=== PATIENT | male | born 1935 ===

== ENCOUNTER 2017-11-04 23:47 | Emergency (ER) | payer MEDICARE ==
[2017-11-04 23:47] VITALS: BMI 21.7
[2017-11-05 00:43] LABS: BASO % 0.8 % (0.0-2.0); EOS # 0.1 K/uL (0.0-0.7); EOS % 2.4 % (0.0-4.0); HEMOGLOBIN 10.6 g/dL (12.0-18.0); LYMPH # 1.4 K/uL (1.0-4.3); LYMPH % 35.9 % (20.0-40.0); MEAN CORPUSCULAR HEMOGLOBIN 28.5 pg (27.0-31.0); MEAN CORPUSCULAR HGB CONC 32.8 g/dL (33.0-37.0); MEAN PLATELET VOLUME 8.3 fl (7.2-11.7); MONO # 0.8 K/uL (0.0-0.8); MONO % 19.9 % (0.0-10.0); NEUT # 1.6 K/uL (1.8-7.0); NRBC % 0.1 % (0.0-0.0); RBC 3.7 Mil/uL (4.40-5.90); RED CELL DISTRIBUTION WIDTH 18.1 % (11.5-14.5)
[2017-11-05 00:52] LABS: ACETAMINOPHEN < 10.0 ug/ml (10.0-30.0); BLOOD UREA NITROGEN 19 mg/dl (9-20); CALCIUM 9.1 mg/dL (8.4-10.2); GFR AFRICAN-AMERICAN > 60; GFR NON-AFRICAN AMERICAN 53; SALICYLATE < 1.0 mg/dl
--- NOTE | 2017-11-05 02:03 | ED PDOC ---
HPI: Psych/Substance Abuse Time Seen by Provider: 11/05/17 00:03 Chief Complaint (Nursing): Psychiatric Evaluation Chief Complaint (Provider): Psychiatric Evaluation History/Exam Limitations: clinical condition Additional Complaint(s): 82 y/o male with past medical history of depression, Alzheimers, CAD and hypertension is brought to the ED by EMS for psychiatric evaluation. Patient was transferred to [facility] yesterday and staff notes that he was aggressive and agitated when he was demanding omega 3. Patient was violent towards staff. EMS reports patient was calm enroute but on arrival to ED patient is agitated again. Denies any further medical complaints. Past Medical History Vital Signs: Last Vital Signs Temp 97.7 F 11/05/17 00:07 Pulse 54 L 11/05/17 00:07 Resp 14 11/05/17 00:07 BP 118/79 11/05/17 00:07 Pulse Ox 94 L 11/05/17 00:07 - Medical History PMH: Alzheimer's Disease, CAD, Dementia, Depression, HTN, Hypercholesterolemia, TIA Denies: HIV - Surgical History Surgical History: No Surg Hx - Family History Family History: States: Unknown Family Hx - Social History Current smoker - smoking cessation education provided: No Alcohol: None Drugs: Denies - Home Medications Home Medications: Ambulatory Orders Medication Instructions Recorded Acetaminophen [Tylenol 325mg tab] 650 mg PO Q6 PRN #0 tab 04/01/16 Atorvastatin [Lipitor] 40 mg PO HS #0 tab 04/01/16 Tamsulosin HCl [Flomax] 0.4 mg PO HS #0 cap.er.24h 04/01/16 Aspirin [Ecotrin] 81 mg PO DAILY 11/05/17 Citalopram Hydrobromide 10 mg PO DAILY 11/05/17 [Citalopram HBr] Clopidogrel [Plavix] 75 mg PO DAILY 11/05/17 Famotidine [Pepcid] 20 mg PO DAILY 11/05/17 Furosemide [Lasix] 40 mg PO DAILY 11/05/17 Gabapentin [Neurontin] 100 mg PO DAILY 11/05/17 Ibuprofen [Motrin Tab] 600 mg PO Q6 PRN 11/05/17 Lorazepam [Ativan] 1 mg PO Q6 PRN 11/05/17 [id number]-8-Twiz Ethyl Esters [OMEGA 3] 1,000 mg PO DAILY 11/05/17 amLODIPine [Norvasc] 10 mg PO DAILY 11/05/17 cloNIDine 0.3 mg/24 hr 0.3 mg TD QWK 11/05/17 [catapres-TTS3 0.3 mg/24 hr] - Allergies Allergies/Adverse Reactions: Allergies Allergy/AdvReac Type Severity Reaction Status Date / Time No Known Allergies Allergy Verified 11/05/17 00:07 Review of Systems ROS Statement: Except As Marked, All Systems Reviewed And Found Negative (As per HPI, otherwise negative) Psych: Positive for: Other (Patient is here for Psychiatric evaluation) Physical Exam - Reviewed Nursing Documentation Reviewed: Yes Vital Signs Reviewed: Yes - Physical Exam Appears: Positive for: Uncomfortable (Patient is agaitated, shouting and spitting at staff) Head Exam: Positive for: ATRAUMATIC, NORMAL INSPECTION, NORMOCEPHALIC Skin: Positive for: Normal Color, Warm, Dry Eye Exam: Positive for: EOMI, Normal appearance, PERRL ENT: Positive for: Normal ENT Inspection Neck: Positive for: Normal, Painless ROM, Supple Cardiovascular/Chest: Positive for: Regular Rate, Rhythm. Negative for: Murmur Respiratory: Positive for: Normal Breath Sounds. Negative for: Accessory Muscle Use, Respiratory Distress Gastrointestinal/Abdominal: Positive for: Normal Exam, Bowel Sounds, Soft Back: Positive for: Normal Inspection Extremity: Positive for: Normal ROM (Patient is moving extremities equally bilaterally). Negative for: Deformity Neurologic/Psych: Positive for: Alert. Negative for: Oriented - Laboratory Results Result Diagrams: 11/05/17 00:30 11/05/17 00:30 - ECG O2 Sat by Pulse Oximetry: 94 (RA) Pulse Ox Interpretation: Normal Medical Decision Making Medical Decision Making: Time: 01:19 Initial Impression: Alzheimer's, dementia, adjustment disorder Plan: EKG Drug screen Crisis evaluation Urinalysis 3AM Patient was seen and evaluated by crisis, cleared for discharge. Scribe Attestation: Documented by Negrito Smith acting as a scribe for Rafi Smart MD. Scribe Attestation: All medical record entries made by the Scribe were at my direction and personally dictated by me. I have reviewed the chart and agree that the record accurately reflects my personal performance of the history, physical exam, medical decision making, and the department course for this patient. I have also personally directed, reviewed, and agree with the discharge instructions and disposition. Disposition - Clinical Impression Clinical Impression: Dementia - Disposition Referrals: [facility] [Outside] Disposition: Routine/Home Disposition Time: 03:00 Condition: IMPROVED Instructions: Dementia (Including Alzheimer Disease) Forms: [employer] (Latvian)
[2017-11-05 02:14] VITALS: BP 108/65; PULSE 60; RESP 18; TEMP 97.6
--- NOTE | 2017-11-05 12:22 | CARD ---
APPROVED REPORT EKG Measurement Heart [id number] MA [id number] <Conclusion> Sinus bradycardia Otherwise normal ECG
[2017-11-05 19:39] VITALS: O2SAT 94
== END 2017-11-05 03:00 ==
LOC: H.ER 23:47
DX: F02.80 Dementia in other diseases classified elsewhere, unspecified severity, without behavioral disturbance, psychotic disturbance, mood disturbance, and anxiety (principal); E78.00 Pure hypercholesterolemia, unspecified; G30.9 Alzheimer's disease, unspecified; I10 Essential (primary) hypertension; Z86.73 Personal history of transient ischemic attack (TIA), and cerebral infarction without residual deficits; I25.10 Atherosclerotic heart disease of native coronary artery without angina pectoris
CPT/HCPCS: 80048; 85025; 93005; 99283; G0480

== ENCOUNTER 2018-11-10 17:07 | Emergency (ER) | payer MEDICARE, MEDICAID ==
[2018-11-10 17:17] VITALS: BMI 20.9
--- NOTE | 2018-11-10 18:21 | ED PDOC ---
HPI: Psych/Substance Abuse Chief Complaint (Provider): Psychiatric Evaluation History Per: Patient History/Exam Limitations: no limitations Onset/Duration Of Symptoms: Days Current Symptoms Are (Timing): Still Present Associated Symptoms: Suicidal Thoughts Additional Complaint(s): 83 year old male with a past medical history of hypertension, hyperlipidemia, and diabetes who was brought to the ED by EMS from [facility] for evaluation of suicidal ideation. From [facility]itentiary report, patient was complaining of suicidal ideation and he admits to this stating that he doesnt want to stay in a penitentiary anymore and would rather stay in this hospital instead. Further states that 2 days ago while attempting to get out of bed, he injured left hand and leg. Patient denies any head injury, chest pain, headache, abdominal pain, loss of consciousness, numbness, or tingling. Of note, patient has a history of suicidal ideation and aggressive behavior. PMD: none provided <Kyra Vanessa - Last Filed: 11/10/18 18:24> <Gray Jean - Last Filed: 11/10/18 20:19> Time Seen by Provider: 11/10/18 17:27 Chief Complaint (Nursing): Psychiatric Evaluation Past Medical History Reviewed: Historical Data, Nursing Documentation, Vital Signs Vital Signs: Last Vital Signs Temp 97.6 F 11/10/18 17:14 Pulse 73 11/10/18 17:14 Resp 16 11/10/18 17:14 BP 112/69 11/10/18 17:14 Pulse Ox 99 11/10/18 17:14 - Medical History PMH: Alzheimer's Disease, Benign Prostatic Hyperplasia, CAD, Dementia, Depression, HTN, Hypercholesterolemia, Hyperlipidemia, Peripheral Edema (+1 left ft), TIA Denies: Diabetes, Hepatitis, HIV, Chronic Kidney Disease, Seizures, Sexually Transmitted Disease - Surgical History Surgical History: No Surg Hx - Family History Family History: States: Unknown Family Hx - Social History Current smoker - smoking cessation education provided: No Alcohol: None Drugs: Denies <Kyra Vanessa - Last Filed: 11/10/18 18:24> Vital Signs: Last Vital Signs Temp 97.6 F 11/10/18 17:14 Pulse 73 11/10/18 17:14 Resp 16 11/10/18 17:14 BP 112/69 11/10/18 17:14 Pulse Ox 99 11/10/18 18:25 <Gray Jean - Last Filed: 11/10/18 20:19> - Home Medications Home Medications: Ambulatory Orders Medication Instructions Recorded Ammonium Lactate 12% [Lac-Hydrin 1 appl TOP BID 11/10/18 12% Lotion (225 g)] Aspirin [Aspirin Chewable] 81 mg PO DAILY 11/10/18 Furosemide [Lasix] 40 mg PO DAILY 11/10/18 Agluj-1-Pmpi Ethyl Esters 1 GM 1 gm PO DAILY 11/10/18 [Lovaza] Polyvinyl Alcohol [Liquitears] 1 drop EACHEYE BID 11/10/18 Valproic Acid Oral Soln [Depakene 5 ml PO Q8 11/10/18 Oral Soln] amLODIPine [Norvasc] 10 mg PO DAILY 11/10/18 levETIRAcetam [Keppra] 250 mg PO Q12 11/10/18 risperiDONE [RisperDAL Oral Soln] 0.5 ml PO Q12 11/10/18 - Allergies Allergies/Adverse Reactions: Allergies Allergy/AdvReac Type Severity Reaction Status Date / Time No Known Allergies Allergy Verified 11/10/18 17:17 Review of Systems ROS Statement: Except As Marked, All Systems Reviewed And Found Negative Constitutional: Negative for: Fever Cardiovascular: Negative for: Chest Pain Respiratory: Negative for: Shortness of Breath Gastrointestinal: Negative for: Abdominal Pain Neurological: Negative for: Headache Psych: Positive for: Suicidal ideation <Kyra Vanessa - Last Filed: 11/10/18 18:24> Physical Exam - Reviewed Nursing Documentation Reviewed: Yes Vital Signs Reviewed: Yes - Physical Exam Appears: Positive for: Non-toxic, No Acute Distress Head Exam: Positive for: ATRAUMATIC, NORMAL INSPECTION, NORMOCEPHALIC Skin: Positive for: Normal Color, Warm, DRY Eye Exam: Positive for: EOMI, Normal appearance, PERRL Neck: Positive for: Normal, Painless ROM Cardiovascular/Chest: Positive for: Regular Rate, Rhythm. Negative for: Murmur Respiratory: Positive for: Normal Breath Sounds. Negative for: Respiratory Distress Gastrointestinal/Abdominal: Positive for: Normal Exam, Soft. Negative for: Tenderness Back: Positive for: Normal Inspection. Negative for: L CVA Tenderness, R CVA Tenderness, Vertebral Tenderness Extremity: Positive for: Normal ROM, Other (left upper and lower extremity: no swelling, no tenderness, no deformity). Negative for: Deformity, Swelling Neurological/Psych: Positive for: Awake, Alert, Normal Tone, Oriented, Other (weakness to left side due to stroke ). Negative for: Motor/Sensory Deficits <Kyra Vanessa - Last Filed: 11/10/18 18:24> - ECG O2 Sat by Pulse Oximetry: 99 (RA) Pulse Ox Interpretation: Normal <Kyra Vanessa - Last Filed: 11/10/18 18:24> - Laboratory Results Result Diagrams: 11/10/18 18:32 11/10/18 18:32 Lab Results: Total Bilirubin 0.2 mg/dl (0.2-1.3) 11/10/18 18:32 AST 15 U/L (17-59) L D 11/10/18 18:32 ALT 18 U/L (21-72) L D 11/10/18 18:32 Alkaline Phosphatase 60 U/L (38-126) 11/10/18 18:32 Total Protein 7.0 G/DL (6.3-8.2) 11/10/18 18:32 Albumin 3.7 g/dL (3.5-5.0) 11/10/18 18:32 Globulin 3.3 gm/dL (2.2-3.9) 11/10/18 18:32 Albumin/Globulin Ratio 1.1 (1.0-2.1) 11/10/18 18:32 - ECG ECG: Positive for: Interpreted By Tx ECG Rhythm: Positive for: Sinus Bradycardia. Negative for: ST/T Changes Rate: 57 <Gray Jean - Last Filed: 11/10/18 20:19> Medical Decision Making Medical Decision Making: Time: 17:53 Plan: --CT Head --EKG --Alcohol Serum --CMP --Drug Screen --CBC --Chest x-ray --X-Ray Left Knee --X-Ray Left Hand --Urinalysis Scribe Attestation: Documented by Rosalia Miller, acting as a scribe for Gray Jean PA-C. Provider Scribe Attestation: All medical record entries made by the Scribe were at my direction and personally dictated by me. I have reviewed the chart and agree that the record accurately reflects my personal performance of the history, physical exam, medical decision making, and the department course for this patient. I have also personally directed, reviewed, and agree with the discharge instructions and disposition. <Kyra Vanessa - Last Filed: 11/10/18 18:24> Medical Decision Making: FINDINGS: BRAIN There is a very large low-density infarct involving the right cerebral hemisphere particularly the right temporal and parietal lobe extending to the high convexity on the right side. Periventricular white matter ischemic change worse in the right side. Area of infarct is seen in the right frontal lobe region. There is effacement of the sulci at the right temporal lobe and parietal region. There appears to be some compensatory dilatation of the right lateral ventricle. There is no acute hemorrhage. Fourth ventricle appears within normal limits. VENTRICLES: No hydrocephalus. ORBITS: The orbits are unremarkable. SINUSES AND MASTOIDS: The paranasal sinuses and mastoid air cells are clear. BONES: No fracture. SOFT TISSUES: Unremarkable. 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 Effacement of the sulci right parietal and temporal lobe regions. Close clinical correlation is advised. Electronically signed on Nov 10, 2018 7:17:00 PM EDT by: Antwan Olivia M.D., Certified by [facility]BR, Diagnostic Radiology <Gray Jean - Last Filed: 11/10/18 20:19> Disposition <Kyra Vanessa - Last Filed: 11/10/18 18:24> - Patient ED Disposition Is Patient to be Admitted: Transfer of Care (Signed out to Luis BACA pending CT results and crisis eval.) - Disposition Disposition Time: 20:00 <Gray Jean Last Filed: 11/10/18 20:19> - Clinical Impression Clinical Impression: Aggressive behavior, Suicidal ideation, Fall - Disposition Condition: STABLE Forms: [employer] (Egyptian)
[2018-11-10 19:03] LABS: BASO % 0.7 % (0.0-2.0); EOS # 0.1 K/uL (0.0-0.7); EOS % 2.6 % (0.0-4.0); HEMOGLOBIN 11.7 g/dL (12.0-18.0); LYMPH # 1.8 K/uL (1.0-4.3); LYMPH % 51.8 % (20.0-40.0); MEAN CELL VOLUME 88.6 fl (80.0-94.0); MEAN CORPUSCULAR HEMOGLOBIN 28.9 pg (27.0-31.0); MEAN CORPUSCULAR HGB CONC 32.6 g/dL (33.0-37.0); MEAN PLATELET VOLUME 7.9 fl (7.2-11.7); MONO # 0.5 K/uL (0.0-0.8); MONO % 13.7 % (0.0-10.0); NEUT # 1.1 K/uL (1.8-7.0); NEUT % 31.2 % (50.0-75.0); NRBC % 0.1 % (0.0-0.0); RBC 4.04 Mil/uL (4.40-5.90); RED CELL DISTRIBUTION WIDTH 14.7 % (11.5-14.5); WHITE BLOOD COUNT 3.6 K/uL (4.8-10.8)
[2018-11-10 19:19] LABS: ALB/GLOB RATIO 1.1 (1.0-2.1); ALBUMIN 3.7 g/dL (3.5-5.0); ALT/SGPT 18 U/L (21-72); AST/SGOT 15 U/L (17-59); BLOOD UREA NITROGEN 14 mg/dl (9-20); GFR NON-AFRICAN AMERICAN > 60
[2018-11-10 20:15] LABS: SQUAMOUS EPITHIAL 1 /hpf (0-5); URINE BACTERIA RARE (<OCC); URINE BILIRUBIN NEGATIVE (NEGATIVE); URINE BLOOD NEGATIVE (NEGATIVE); URINE CLARITY CLOUDY (Clear); URINE COLOR YELLOW (YELLOW); URINE GLUCOSE (UA) NEG (NEGATIVE); URINE LEUKOCYTE ESTERASE TRACE Leu/uL (Negative); URINE PROTEIN NEGATIVE (NEGATIVE)
--- NOTE | 2018-11-10 20:26 | ED PDOC ---
- Laboratory Results Result Diagrams: 11/10/18 18:32 11/10/18 18:32 Lab Results: Total Bilirubin 0.2 mg/dl (0.2-1.3) 11/10/18 18:32 AST 15 U/L (17-59) L D 11/10/18 18:32 ALT 18 U/L (21-72) L D 11/10/18 18:32 Alkaline Phosphatase 60 U/L (38-126) 11/10/18 18:32 Total Protein 7.0 G/DL (6.3-8.2) 11/10/18 18:32 Albumin 3.7 g/dL (3.5-5.0) 11/10/18 18:32 Globulin 3.3 gm/dL (2.2-3.9) 11/10/18 18:32 Albumin/Globulin Ratio 1.1 (1.0-2.1) 11/10/18 18:32 - ECG O2 Sat by Pulse Oximetry: 99 (RA) - Progress ED Course And Treament: CT from [place] reviewed by US rad. " Since 2016 there is an extension of an infarct to involve frontal and temporal lobes. parietal infarct was described in 2016. corelated to 04/14/17 report grossly no significant change. d/w crisis . d/w Dr Hercules Patient to be observed until am and re-evaluated for possible [facility] eval. Disposition - Clinical Impression Clinical Impression: Aggressive behavior, Suicidal ideation, Fall - POA Present On Arrival: None - Disposition Disposition: Transfer of Care Disposition Time: 05:55 Condition: STABLE Patient Signed Over To: Milo Lyons Handoff Comments: pending re-evaluation by crisis
[2018-11-10 20:28] LABS: BARBITURATES, UR NEGATIVE (NEGATIVE); BENZODIAZEPINES, UR NEGATIVE (NEGATIVE); OPIATES, UR NEGATIVE (NEGATIVE); PHENCYCLIDINE, UR NEGATIVE (NEGATIVE)
--- NOTE | 2018-11-11 07:05 | ED PDOC ---
- Laboratory Results Result Diagrams: 11/10/18 18:32 11/10/18 18:32 Lab Results: Total Bilirubin 0.2 mg/dl (0.2-1.3) 11/10/18 18:32 AST 15 U/L (17-59) L D 11/10/18 18:32 ALT 18 U/L (21-72) L D 11/10/18 18:32 Alkaline Phosphatase 60 U/L (38-126) 11/10/18 18:32 Total Protein 7.0 G/DL (6.3-8.2) 11/10/18 18:32 Albumin 3.7 g/dL (3.5-5.0) 11/10/18 18:32 Globulin 3.3 gm/dL (2.2-3.9) 11/10/18 18:32 Albumin/Globulin Ratio 1.1 (1.0-2.1) 11/10/18 18:32 Urine Color Yellow (YELLOW) 11/10/18 19:40 Urine Clarity Cloudy (Clear) 11/10/18 19:40 Urine pH 6.0 (5.0-8.0) 11/10/18 19:40 Ur Specific [place] 1.019 (1.003-1.030) 11/10/18 19:40 Urine Protein Negative mg/dL (NEGATIVE) 11/10/18 19:40 Urine Glucose (UA) Neg mg/dL (NEGATIVE) 11/10/18 19:40 Urine Ketones Negative mg/dL (NEGATIVE) 11/10/18 19:40 Urine Blood Negative (NEGATIVE) 11/10/18 19:40 Urine Nitrate Negative (NEGATIVE) 11/10/18 19:40 Urine Bilirubin Negative (NEGATIVE) 11/10/18 19:40 Urine Urobilinogen 1.0 mg/dL (0.2-1.0) 11/10/18 19:40 Ur Leukocyte Esterase Trace Saroj/uL (Negative) 11/10/18 19:40 Urine RBC (Auto) 1 /hpf (0-3) 11/10/18 19:40 Urine Microscopic WBC 6 /hpf (0-5) H 11/10/18 19:40 Ur Squamous Epith Cells 1 /hpf (0-5) 11/10/18 19:40 Urine Bacteria Rare (<OCC) 11/10/18 19:40 - ECG O2 Sat by Pulse Oximetry: 100 (RA) Pulse Ox Interpretation: Normal Medical Decision Making Medical Decision Making: Time: 0700 -- Patient endorsed to me by Dr. Lyons, pending re-evaluation by crisis. _ Scribe Attestation: Documented by Vanessa Rodrigues, acting as a scribe Lawanda Vanessa MD. Provider Scribe Attestation: All medical record entries made by the Scribe were at my direction and personally dictated by me. I have reviewed the chart and agree that the record accurately reflects my personal performance of the history, physical exam, medical decision making, and the department course for this patient. I have also personally directed, reviewed, and agree with the discharge instructions and disposition. Disposition - Clinical Impression Clinical Impression: Fall, Major depressive disorder, recurrent - POA Present On Arrival: Falls Or Trauma - Disposition Disposition: Other Institution ([facility]) Disposition Time: 08:05 Condition: STABLE Instructions: Depression Forms: [employer] (Qatari)
--- NOTE | 2018-11-11 08:51 | RAD ---
PROCEDURE: Left Hand Radiographs. HISTORY: trauma COMPARISON: None. FINDINGS: BONES: Three views of the left wrist were performed for left wrist pain. Exam is limited by diffuse osteopenia. No appreciable fracture line is identified. Visualized carpal bones are intact and have normal alignment on the lateral view. No abnormal carpal bone joint space widening is seen. Distal radius and ulna appear grossly intact. Visualized metacarpals are intact. JOINTS: Mild degenerative changes. SOFT TISSUES: Normal. OTHER FINDINGS: None. IMPRESSION: Limited exam due to osteopenia. No appreciable fracture. If symptoms persist follow-up film would be suggested with comparison view of the right wrist.
--- NOTE | 2018-11-11 08:52 | RAD ---
Date of service: 11/10/2018 PROCEDURE: Left Knee Radiographs. HISTORY: Pain. COMPARISON: None. FINDINGS: BONES: 2 views of left knee were performed. Moderate degenerative changes are noted. No appreciable fracture is seen. No lytic process is noted. No chondrocalcinosis is seen. Minor soft tissue swelling is noted. No appreciable joint effusion is seen. Tibial plateaus are intact. Proximal fibula is intact. JOINTS: DJD. JOINT EFFUSION: None. OTHER FINDINGS: None. IMPRESSION: No appreciable fracture. Degenerative joint disease.
--- NOTE | 2018-11-11 08:53 | RAD ---
Date of service: 11/10/2018 HISTORY: fall COMPARISON: No prior. FINDINGS: LUNGS: No active pulmonary disease. PLEURA: No significant pleural effusion identified, no pneumothorax apparent. CARDIOVASCULAR: Mild aortic atherosclerotic calcification present. Normal cardiac size. No pulmonary vascular congestion. OSSEOUS STRUCTURES: No significant abnormalities. VISUALIZED UPPER ABDOMEN: Normal. OTHER FINDINGS: None. IMPRESSION: No active disease.
[2018-11-11 09:45] VITALS: BP 141/83; PULSE 88; RESP 16; TEMP 97.7; O2SAT 99
--- NOTE | 2018-11-11 11:04 | CT ---
Date of service: 11/10/2018 PROCEDURE: CT HEAD WITHOUT CONTRAST. HISTORY: fall COMPARISON: 03/17/2016 CT scan, MRI exam 03/17/2016 TECHNIQUE: Axial computed tomography images were obtained through the head/brain without intravenous contrast. Radiation dose: Total exam DLP = 793.56 mGy-cm. This CT exam was performed using one or more of the following dose reduction techniques: Automated exposure control, adjustment of the mA and/or kV according to patient size, and/or use of iterative reconstruction technique. FINDINGS: HEMORRHAGE: No intracranial hemorrhage. BRAIN: Since the prior examination there is evidence of multiple new areas of encephalomalacia and decreased density in the right frontal lobe and right temporal lobe although a portion was also seen on the prior study within the right temporal lobe region. There is additional extension of encephalomalacia and probable chronic infarct in the right parietal lobe. New area of encephalomalacia and low density is seen in the right frontal convexity. There is poor encephalic change of the right lateral ventricle. There is also a stable chronic infarct within the right basal ganglia. No new left cortical effacement is seen. Posterior fossa is unchanged. No atrophy or chronic microvascular ischemic changes. 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 CALVARIUM: Unremarkable. PARANASAL SINUSES: Unremarkable as visualized. No significant inflammatory changes. MASTOID AIR CELLS: Unremarkable as visualized. No inflammatory changes. OTHER FINDINGS: None. IMPRESSION: No evidence of intracranial hemorrhage. Moderate areas of decreased density and probable chronic encephalomalacia in the right cerebral hemisphere consistent with chronic infarcts. Associated ex vacuo dilatation of the right lateral ventricle. MRI could be obtained to ascertain for any recent areas of infarct. This agrees with preliminary report.
--- NOTE | 2018-11-11 12:23 | CARD ---
APPROVED REPORT Date of service: 11/10/2018 EKG Measurement Heart [id number] <Conclusion> Sinus bradycardia with sinus arrhythmia Left axis deviation Abnormal ECG
== END 2018-11-11 09:45 ==
LOC: H.ER 17:07
DX: S69.92XA Unspecified injury of left wrist, hand and finger(s), initial encounter (principal); R45.851 Suicidal ideations; Z00.8 Encounter for other general examination; G30.9 Alzheimer's disease, unspecified; I10 Essential (primary) hypertension; N40.0 Benign prostatic hyperplasia without lower urinary tract symptoms; Z79.899 Other long term (current) drug therapy; Z86.73 Personal history of transient ischemic attack (TIA), and cerebral infarction without residual deficits; F02.80 Dementia in other diseases classified elsewhere, unspecified severity, without behavioral disturbance, psychotic disturbance, mood disturbance, and anxiety; W19.XXXA Unspecified fall, initial encounter
CPT/HCPCS: 70450; 71045; 73130; 73562; 80053; 81003; 85025; 93005; 99285; G0480